=== PATIENT | male | born 1935 | race Caucasian/White ===

== ENCOUNTER 2018-02-17 10:33 | Outpatient (CLI) | payer MEDICARE, OTHER ==
[2018-02-17] MEDS ORDERED: Iopamidol 370 76% 100 ML VIAL ONE (11:01)
--- NOTE | 2018-02-17 13:34 | CT ---
CT ABDOMEN AND PELVIS WITH IV CONTRAST: INDICATIONS: Prostate cancer. Prior radiation. COMPARISON: Noncontrast CT abdomen and pelvis from 09/13/2011. TECHNIQUE: Multiple axial tomograms obtained through the abdomen and pelvis with IV enhancement. Oral contrast was not given. FINDINGS: Images through the lung bases reveal a 1 cm nodule in the anterior right lower lobe. Atelectatic stacy nges are seen in both posterior lung bases. Granulomatous calcifications are seen in the liver and spleen, which were present previously. Adrena l glands are unremarkable. The pancreas is unremarkable. There is an exophytic cyst off the superior right kidney, which was present previously, and measures 3.7 cm. It has enlarged slightly since the prior exam, at which time it measured 3 cm. The kidneys show symmetric function. No hydronephrosis. No evidence of urinary calculus. The urete rs are normal in appearance. The urinary bladder is mildly distended and appears unremarkable. Small bowel loops are of normal caliber. The colon shows diverticulosis. The aorta is of normal latrell iber. No adenopathy. An anterior abdominal wall hernia is again noted and was described previously. This appears unchange d. Mesenteric fat herniate through the defect with a hernia sac in the subcutaneous tissues measurin g up to 7 cm in width. Images of the osseous structures reveal a left hip prosthesis. The bones show osteopenia and degener ative changes in the spine. No focal lytic or blastic osseous lesion identified. An IVC filter is a gain noted. IMPRESSION: 1. A 1 cm nodule in the right lower lobe, anteriorly. Recommend dedicated CT chest to further evalu ate the lung mark. 2. Stable CT findings, which include an anterior abdominal wall hernia, a right renal cyst, and dive rticulosis. No acute findings or significant change from the prior CT. POS: [facility]
--- NOTE | 2018-02-17 16:17 | NM ---
WHOLE BODY BONE SCAN: Date: 02/17/18 HISTORY: Prostate cancer. RADIOPHARMACEUTICAL: 28 mCi technetium-99m MDP injected intravenously. COMPARISON: None. CORRELATION: CT abdomen and pelvis of same date. FINDINGS: Increased uptake in the lumbar spine is consistent with degenerative changes noted on the bone window s of the CT scan from same date. Increased uptake in the shoulders, sternoclavicular joints, right hi p, and both feet are consistent with degenerative change. Photopenia due to replacement surgery is se en in the left hip and the right knee. No other abnormal areas of tracer localization in the skeleton to suggest metastatic disease. Tracer excretion through the kidneys is within normal limits. IMPRESSION: No scintigraphic evidence of osseous metastatic disease. POS: [facility]
== END 2018-02-17 10:34 | disposition home or self-care (01) ==
LOC: CT 10:33
PROVIDERS: ATTEND Urology
DX: C61 Malignant neoplasm of prostate (principal); R91.1 Solitary pulmonary nodule; K43.9 Ventral hernia without obstruction or gangrene; N28.1 Cyst of kidney, acquired; K57.90 Diverticulosis of intestine, part unspecified, without perforation or abscess without bleeding
CPT/HCPCS: 74177; 78306; 82565; A9503

== ENCOUNTER 2018-11-27 10:28 | Day surgery (SDC) | payer MEDICARE, OTHER ==
[2018-11-26 17:10] VITALS: BMI 33.0
[2018-11-27] MEDS ORDERED: PROPOFOL 20 ML ONE (12:40)
[2018-11-27] MEDS ORDERED: PROPOFOL 200 MG/20 ML VIAL ONE (14:24)
--- NOTE | 2018-11-30 08:28 | OP ---
DATE OF PROCEDURE: 11/27/2018 PREOPERATIVE DIAGNOSIS: Atrial fibrillation. POSTOPERATIVE DIAGNOSIS: Atrial fibrillation. PROCEDURE: Failed cardioversion. The patient was consented for the procedure. I discussed the procedure in full detail with Mr. Galeas. Risks included, but not limited to , stroke, failed cardioversion, need for repeat cardioversion in addition burning of skin. All questions were answered. The patient states he has taken Coumadin fairly regularly over the last several years. His INR did drop down to 1.9 over the last 3 to 4 weeks and then overshot. It has otherwise been above 2.0 over the last several years per patient history. The patient underwent sedation with propofol. Synchronized cardioversion was unsuccessful at 150, 200, and 250 joules. IMPRESSION: Failed synchronized cardioversion. PLAN: Plan is to change to different type of antiarrhythmic such as flecainide or amiodarone. We will discuss on followup. Job ID: [id number]
== END 2018-11-27 14:10 | disposition home or self-care (01) ==
LOC: CCL 10:28
PROVIDERS: ATTEND Internal Medicine Cardiovascular Disease
DX: I48.0 Paroxysmal atrial fibrillation (principal); I27.20 Pulmonary hypertension, unspecified; L97.929 Non-pressure chronic ulcer of unspecified part of left lower leg with unspecified severity; I10 Essential (primary) hypertension; Z87.891 Personal history of nicotine dependence; Z79.01 Long term (current) use of anticoagulants; Z79.82 Long term (current) use of aspirin; Z79.84 Long term (current) use of oral hypoglycemic drugs; Z79.899 Other long term (current) drug therapy
CPT/HCPCS: 92960; J2704

== ENCOUNTER 2019-01-15 05:59 | Day surgery (SDC) | payer MEDICARE, OTHER ==
[2019-01-12 13:33] VITALS: BMI 34.4
[2019-01-15] MEDS ORDERED: Lidocaine 1% (PF) 30 ML VIAL ONE (06:53)
[2019-01-15] MEDS ORDERED: PROPOFOL 20 ML ONE (06:53)
[2019-01-15 07:56] LABS: Anion Gap 13 mmol/L (10-20); BUN (Urea Nitrogen) 26 mg/dL (8.4-25.7); Calc. Creatinine Clearance 75 mL/min (70-130); Carbon Dioxide 25 mmol/L (23-31); Chloride 108 mmol/L (98-107); Estimated GFR-MDRD 60; Glucose 113 mg/dL (83-110); Potassium 3.9 mmol/L (3.5-5.1); Sodium 142 mmol/L (136-145)
--- NOTE | 2019-01-15 08:17 | OP ---
DATE OF PROCEDURE: 01/15/2019 PREPROCEDURE DIAGNOSIS: Atrial fibrillation. POSTPROCEDURE DIAGNOSIS: Sinus rhythm. PROCEDURE PERFORMED: Synchronized cardioversion. Conscious sedation was performed with propofol. The patient underwent synchronized cardioversion x1 with 200 joules successfully. IMPRESSION: Successful synchronized cardioversion. Job ID: [id number]
--- NOTE | 2019-01-15 08:17 | OP ---
DATE OF PROCEDURE: 01/15/2019 PREPROCEDURE DIAGNOSIS: Atrial fibrillation. POSTPROCEDURE DIAGNOSIS: Atrial fibrillation. PROCEDURE PERFORMED: Transesophageal echocardiography. The patient was consented for the procedure. I discussed the procedure in full detail with Mr. Galeas. Risks included, but not limited to the following: Damage to teeth, mouth, back of throat, damage to esophagus. All questions were answered. Given the above, the patient agreed to proceed with above procedure. The probe was passed easily into the esophagus. Conscious sedation performed with propofol. FINDINGS: Left atrial appendage well visualized. No obvious thrombus present. Velocities approach 50 cm/second. IMPRESSION: No obvious thrombus of left atrial appendage. Job ID: [id number]
[2019-01-15] MEDS ORDERED: PROPOFOL 200 MG/20 ML VIAL ONE (15:41)
[2019-01-15] MEDS ORDERED: Lidocaine 1% PF 5 ML VIAL ONE (15:41)
== END 2019-01-15 08:32 | disposition home or self-care (01) ==
LOC: CCL 05:59
PROVIDERS: ATTEND Internal Medicine Cardiovascular Disease
PROC: 5A2204Z Restoration of Cardiac Rhythm, Single (ICD-10-PCS; principal; 2019-01-15)
PROC: B24BZZ4 Ultrasonography of Heart with Aorta, Transesophageal (ICD-10-PCS; 2019-01-15)
DX: I48.1 Persistent atrial fibrillation (principal); I10 Essential (primary) hypertension; E11.9 Type 2 diabetes mellitus without complications; I83.013 Varicose veins of right lower extremity with ulcer of ankle; Z86.73 Personal history of transient ischemic attack (TIA), and cerebral infarction without residual deficits; Z86.718 Personal history of other venous thrombosis and embolism; Z85.46 Personal history of malignant neoplasm of prostate; Z87.891 Personal history of nicotine dependence; Z79.01 Long term (current) use of anticoagulants; Z79.82 Long term (current) use of aspirin; Z79.84 Long term (current) use of oral hypoglycemic drugs; Z79.899 Other long term (current) drug therapy; Z98.890 Other specified postprocedural states
CPT/HCPCS: 80048; 92960; 93312; J2001; J2704

== ENCOUNTER 2019-01-25 11:01 | Inpatient (IN) | payer MEDICARE, OTHER ==
--- NOTE | 2019-01-25 11:27 | RAD ---
Chest one view HISTORY: Dyspnea. COMPARISON: 10/19/2018. FINDINGS: Cardiac silhouette is magnified by projection. Pulmonary vasculature upper limits of normal . Patchy parenchymal opacity at each base. Somewhat linear at the right base. Calcified granulomata and mediastinal lymph nodes are consistent with healed granulomatous disease. N o lobar consolidation or evidence of pneumothorax. Oval calcification immediately inferior to the right coracoid process likely represents an intracapsular right shoulder lesion. IMPRESSION: Mild bibasilar parenchymal opacity. Possible atelectasis versus infiltrate. Clinical arturo elation regarding other signs of symptoms of bibasilar pneumonitis is required. Other chronic-type findings are stable.
[2019-01-25 11:28] LABS: #Basophils 0.1 thou/uL (0.0-0.2); #Eosinphils 0.1 thou/uL (0.0-0.7); #Lymphocytes 0.6 thou/uL (1.20-3.40); #Monocytes 0.5 thou/uL (0.11-0.59); #Neutrophils 4.3 thou/uL (1.40-6.50); %Eosinophils 2.1 % (0.0-10.0); %Lymphocytes 11.1 % (21.0-51.0); %Monocytes 8.7 % (0.0-10.0); %Neutrophils 77.1 % (42.0-75.0); Hemoglobin 14.2 g/dL (14.0-18.0); Mean Corpuscular HGB CONC 31.7 g/dL (32.0-36.0); Mean Corpuscular Hemoglobin 28.2 pg (27.0-31.0); Mean Platelet Volume 8.6 fL (7.4-10.4); Platelet Count 152 thou/uL (130-400); RBC Distribution Width 15.2 % (11.5-14.5); Red Blood Cell (RBC) Count 5.02 mill/uL (4.70-6.10); White Blood Cell (WBC) Count 5.6 thou/uL (4.8-10.8)
[2019-01-25 11:51] LABS: ALT (SGPT) 22 U/L (8-55); AST (SGOT) 32 U/L (5-34); Alkaline Phosphatase 75 U/L (40-150); Anion Gap 17 mmol/L (10-20); BUN (Urea Nitrogen) 22 mg/dL (8.4-25.7); Bilirubin, Total 0.9 mg/dL (0.2-1.2); Calc. Creatinine Clearance 0 mL/min (70-130); Calcium 9.2 mg/dL (7.8-10.44); Carbon Dioxide 20 mmol/L (23-31); Chloride 106 mmol/L (98-107); Estimated GFR-MDRD 57; Globulin 3.7 g/dL (2.4-3.5); Glucose 147 mg/dL (83-110); Potassium 4.5 mmol/L (3.5-5.1); Protein, Total 7.7 g/dL (5.8-8.1); Sodium 138 mmol/L (136-145)
[2019-01-25] MEDS ORDERED: Furosemide 40 MG/4 ML VIAL ONE (13:41)
[2019-01-25] MEDS ORDERED: Ondansetron PF 4 MG/2 ML Vial IVP PRN (16:30)
[2019-01-25] MEDS ORDERED: HumaLOG 300 UNITS/3 ML VIAL SC PRN (16:43)
[2019-01-25] MEDS ORDERED: Dextrose 50% Abboject 50 ML SYRINGE SLOW IVP PRN (16:43)
[2019-01-25] MEDS ORDERED: Dextrose 5% in Water 1,000 ML IV PRN (16:43)
[2019-01-25] MEDS ORDERED: Furosemide 20 MG/2 ML VIAL SLOW IVP SCH (17:15)
[2019-01-25 17:27] LABS: INR-International Normal Ratio 2.5; Prothrombin Time 27.3 SEC (12.0-14.7)
--- NOTE | 2019-01-25 18:38 | HP ---
CHIEF COMPLAINT: Shortness of breath. HISTORY OF PRESENT ILLNESS: The patient is a very pleasant 83-year-old male with past medical history significant for atrial fibrillation, status post multiple cardioversions in the past, the most recent on January 15, 2019, with his primary shearing machine feeder, Dr. Chakraborty. Given this history, the patient reports worsening shortness of breath for the past 3 days. He does not complain of orthopnea, but rather dyspnea on exertion. Associated symptoms include approximately 10-pound weight gain over the past month. The patient reports no chest pains. He was seen this morning in the INR clinic, and because of his cough and shortness of breath, was sent to the shearing machine feeder's office for further evaluation. Ultimately, he was sent to the ER for further evaluation. Evaluation thus far has included a chest x-ray, which shows possible atelectasis versus infiltrate. The patient's BNP was over 2200. EKG showed sustained atrial fibrillation, with right bundle-branch block with a ventricular rate of 100 beats per minute. The patient states that he has undergone multiple cardioversions in the past. He was on antiarrhythmic therapy with sotalol for quite a while he says, and then was ultimately changed to flecainide per the patient at his last cardioversion. He has been compliant with his Coumadin. REVIEW OF SYSTEMS: A 12-point review of systems is performed and is negative except that stated above. The patient denies any fever or chills. He does report a productive cough as mentioned above, which is productive of clear and yellowish sputum. He denies any night sweats. He denies any abdominal pain, vomiting, or blood in his urine or stool. ALLERGIES: NO KNOWN DRUG ALLERGIES. HOME MEDICATIONS: 1. Aspirin 81 mg p.o. b.i.d. 2. Lipitor 20 mg p.o. q.p.m. 3. Celebrex 200 mg 1 tablet daily. 4. Aricept 10 mg 1 tablet daily. 5. Flecainide 50 mg tablet 1 tablet p.o. b.i.d. 6. Furosemide 40 mg tablet 1 tablet daily. 7. Glipizide 2.5 mg p.o. q.a.m. 8. Acidophilus 1 tablet daily. 9. Lisinopril 20 mg tablet 1 tablet p.o. b.i.d. 10. Metolazone 2.5 mg tablet 1 tablet daily. 11. Metoprolol tartrate 25 mg tablet 1 tablet p.o. b.i.d. 12. Daily multivitamin. 13. Potassium chloride 10 mEq tablet 1 tablet daily. 14. Warfarin 7.5 mg tablet 1 tablet daily. SOCIAL HISTORY: The patient has a remote history of smoking, but states that he quit many years ago. No alcohol. No illicit drug use. FAMILY HISTORY: Noncontributory. CODE STATUS: The patient is a full code, and this was discussed with the patient in detail. His son was present as well. PAST SURGICAL HISTORY: The patient has had numerous orthopedic procedures including several on his right elbow for reconstruction. He had a cyst removal from his chest. He has had a prostatectomy. He has had left hip replacement as well as right knee replacement, appendectomy, prostatectomy. PHYSICAL EXAMINATION: GENERAL: The patient is an elderly male, resting comfortably in bed, in no acute distress. HEENT: Head is atraumatic, normocephalic. Mucous membranes are moist. NECK: No appreciable JVD. No carotid bruits. Trachea is midline. CV: S1 and S2. Irregularly irregular, mildly tachycardic. LUNGS: Regular respiratory rate and pattern, bibasilar crackles, occasional expiratory wheeze. ABDOMEN: Positive bowel sounds. Soft, nontender. EXTREMITIES: Both lower extremities are wrapped. SKIN: No appreciable rashes or discolorations. NEUROLOGIC: Cranial nerves 2 through 12 are intact. The patient is nonfocal. He is alert and oriented x3. LABORATORY DATA: White blood cell count 5.6, RBC 5.02, hemoglobin 14.2, hematocrit 44.7, platelet count is 152. PT 27.3, INR 2.5. Sodium 138, potassium 4.5, chloride 106, carbon dioxide 20, anion gap 17, creatinine 1.22, glucose 120, lactic acid 1.7. AST, ALT, and alkaline phosphatase are all within normal limits. BNP 2021. Troponin 0.02. ASSESSMENT: 1. Shortness of breath secondary to acute congestive heart failure exacerbation in the setting of atrial fibrillation with rapid ventricular response, the patient may also have a mild bronchitis contributing as well, although BNP points to HF. 2. Atrial fibrillation with rapid ventricular response, status post failed cardioversion on January 15, 2019, CHADS-VASc equals 5, on anticoagulation with Coumadin, INR 2.5. 3. Hypertension. 4. Type-2 diabetes mellitus. 5. Mild dementia. 6. Chronic venous stasis dermatitis and chronic venous stasis ulcers for which the patient currently sees wound care on a regular basis. PLAN: We will continue IV diuresis as kidney function permits, and monitor electrolytes closely. Monitor Is and Os. We will continue beta cyndie for rate control and monitor his wheezing closely, although I suspect some aspect of cardiac asthma as well. Will see how he does with diuresis and re-assess. Continue PAUL inhibitor. I will hold flecainide in the setting of acute CHF exacerbation. We will consult Cardiology for further recommendations. He may be a candidate for ablation, given his failed medical therapy with multiple antiarrhythmics. We will defer to Cardiology for further recommendations. We will add sliding scale and Accu-Cheks. We will add GI prophylaxis, we will continue the patient's Coumadin for stroke and DVT prophylaxis. Further recommendations based on hospital course. Job ID: [id number] [email or web address]
[2019-01-25] MEDS: Famotidine 20 MG TAB PO SCH (20:57)
[2019-01-25] MEDS: Lisinopril 20 MG TAB PO SCH (20:57)
[2019-01-26 05:23] LABS: #Eosinphils 0.1 thou/uL (0.0-0.7); #Lymphocytes 0.9 thou/uL (1.20-3.40); #Monocytes 0.7 thou/uL (0.11-0.59); #Neutrophils 3.1 thou/uL (1.40-6.50); %Basophils 0.4 % (0.0-1.0); %Lymphocytes 18.2 % (21.0-51.0); %Monocytes 14.8 % (0.0-10.0); %Neutrophils 63.7 % (42.0-75.0); Hemoglobin 13.3 g/dL (14.0-18.0); Mean Corpuscular Hemoglobin 28.8 pg (27.0-31.0); Mean Platelet Volume 8.4 fL (7.4-10.4); Platelet Count 124 thou/uL (130-400); RBC Distribution Width 15.2 % (11.5-14.5); Red Blood Cell (RBC) Count 4.61 mill/uL (4.70-6.10); White Blood Cell (WBC) Count 4.9 thou/uL (4.8-10.8)
[2019-01-26 05:41] LABS: Anion Gap 12 mmol/L (10-20); BUN (Urea Nitrogen) 20 mg/dL (8.4-25.7); Calc. Creatinine Clearance 104 mL/min (70-130); Calcium 8.8 mg/dL (7.8-10.44); Carbon Dioxide 29 mmol/L (23-31); Chloride 104 mmol/L (98-107); Estimated GFR-MDRD Greater than 90; Glucose 79 mg/dL (83-110); Potassium 3.8 mmol/L (3.5-5.1); Sodium 141 mmol/L (136-145)
[2019-01-26] MEDS: Furosemide 40 MG/4 ML VIAL SLOW IVP SCH ×2 (06:21→13:31)
[2019-01-26] MEDS ORDERED: Warfarin Sodium 7.5 MG TAB PO SCH ×2 (09:00→17:00)
--- NOTE | 2019-01-26 09:34 | PDOC.PN ---
- Subjective Encounter Start Date: 01/26/19 Encounter Start Time: 09:30 Subjective: Patient reports SOB has improved -: Reports he is still wheezing - Objective Resuscitation Status - Order Detail: 01/25/19 16:30 Resuscitation Status Routine Co-Sign Provider: Resuscitation Status: FULL: Full Resuscitation Discussed with: patient Vital Signs & Weight: Vital Signs (12 hours) Temp Pulse Resp BP Pulse Ox 01/26/19 07:26 97.8 F 94 24 H 142/81 H 92 L 01/26/19 03:31 97.5 F L 93 24 H 135/74 95 01/25/19 23:30 97.8 F 90 12 150/82 H 95 Weight Weight 102.512 kg I&O: 01/25/19 01/26/19 01/27/19 06:59 06:59 06:59 Intake Total 280 Output Total 2425 Balance -2145 Result Diagrams: 01/26/19 04:43 01/26/19 04:43 Additional Labs: Accuchecks 01/25/19 01/25/19 20:44 16:53 POC Glucose 118 H 120 H Phys Exam - Physical Examination HEENT: PERRLA Neck: no nodes, no JVD Respiratory: wheezing present Cardiovascular: irregular Gastrointestinal: soft Musculoskeletal: edema present Neurological: normal sensation, moves all 4 limbs Psychiatric: normal affect, A&O x 3 Skin: cap refill <2 seconds Deviation from normal: megan type rash to groin Dx/Plan (1) Atrial fibrillation Code(s): I48.91 - UNSPECIFIED ATRIAL FIBRILLATION Status: Acute (2) CHF exacerbation Code(s): I50.9 - HEART FAILURE, UNSPECIFIED Status: Acute (3) Chronic kidney disease Code(s): N18.9 - CHRONIC KIDNEY DISEASE, UNSPECIFIED Status: Chronic (4) Wheezing Code(s): R06.2 - WHEEZING Status: Acute (5) CAD (coronary artery disease) Code(s): I25.10 - ATHSCL HEART DISEASE OF [place] CORONARY ARTERY W/O ANG PCTRS Status: Chronic - Plan cont current plan of care, respiratory therapy Lasix q6h, cardiology consult today -: Wound care for lower leg wounds -: Restart home meds, hold flecinide -: Patient is not sufficiently diuresed after 23 hours of observation -: and is still hypoxic with ambulation * . Review of Systems - Review of Systems Respiratory: Cough, Shortness of Breath, SOB with Excertion, Wheezing Skin: Lesions - Medications/Allergies Allergies/Adverse Reactions: Allergies Allergy/AdvReac Type Severity Reaction Status Date / Time No Known Drug Allergies Allergy Verified 01/12/19 13:30 Medications: Current Medications Acetaminophen (Tylenol) 650 mg PO Q4H PRN PRN Reason: Headache/Fever/Mild Pain (1-3) Albuterol/Ipratropium (Duoneb) 3 ml NEB [id number] PRN PRN Reason: SOB &/or Wheezing Last Admin: 01/26/19 10:21 Dose: 3 ml Dextrose/Water (Dextrose 50%) 25 gm SLOW IVP PRN PRN PRN Reason: Hypoglycemia Donepezil HCl (Aricept) 10 mg PO DAILY [facility] Last Admin: 01/26/19 10:20 Dose: 10 mg Famotidine (Pepcid) 20 mg PO BID [facility] Last Admin: 01/26/19 10:20 Dose: 20 mg Furosemide (Lasix) 40 mg SLOW IVP 0600,1400 [facility] Last Admin: 01/26/19 13:31 Dose: 40 mg Glucagon (Glucagon) 1 mg IM PRN PRN PRN Reason: Hypoglycemia Dextrose/Water (D5w) 1,000 mls @ 0 mls/hr IV .Q0M PRN PRN Reason: Hypoglycemia Insulin Human Lispro (Humalog) 0 units SC .MILD SLIDING SCALE PRN PRN Reason: Mild Correctional Scale Lisinopril (Zestril) 20 mg PO BID [facility] Last Admin: 01/26/19 10:20 Dose: 20 mg Metolazone (Zaroxolyn) 2.5 mg PO DAILY [facility] Last Admin: 01/26/19 10:25 Dose: 2.5 mg Metoprolol Succinate (Toprol Xl) 25 mg PO DAILY [facility] Last Admin: 01/26/19 10:20 Dose: 25 mg Nystatin (Mycostatin Powder) 0 gm TOP BID PRN PRN Reason: Topical Irritations Last Admin: 01/26/19 13:31 Dose: 1 applic Ondansetron HCl (Zofran) 4 mg IVP Q6H PRN PRN Reason: Nausea/Vomiting Warfarin Sodium (Coumadin) 7.5 mg PO 1700 [facility]
[2019-01-26] MEDS ORDERED: Nystatin Powder 15 GM BOT TOP PRN (09:52)
[2019-01-26] MEDS: Donepezil HCl 10 MG TAB PO SCH (10:20)
[2019-01-26] MEDS: Lisinopril 20 MG TAB PO SCH ×2 (10:20→21:03)
[2019-01-26] MEDS: Famotidine 20 MG TAB PO SCH ×2 (10:20→21:03)
[2019-01-26] MEDS: Metolazone 2.5 MG TAB PO SCH (10:25)
[2019-01-26] MEDS ORDERED: Warfarin Sodium 5 MG TAB PO SCH (17:30)
--- NOTE | 2019-01-26 17:50 | CON ---
DATE OF CONSULTATION: REASON FOR CONSULTATION: Atrial fibrillation and CHF. HISTORY OF PRESENT ILLNESS: Mr. Galeas is a very pleasant 83-year-old gentleman, whom I have seen him in the past. He has been cardioverted x2 in the last several weeks. He was cardioverted on sotalol in addition to switching to a flecainide. He has had increased swelling and lower extremity edema. He had a stress study performed that was within normal limits. He states he has gained 10 pounds. PAST MEDICAL HISTORY: Paroxysmal atrial fibrillation, prostate cancer, previous varicose veins, hypertension, previous DVT to right lower extremity, appendectomy, hip surgery, right arm surgery, back surgery, knee surgery, IVC filter placement likely occluded, prostatectomy. SOCIAL HISTORY: No current tobacco or alcohol use. REVIEW OF SYSTEMS: A 10-point review of systems is reviewed and as above, otherwise negative. CURRENT HOME MEDICATIONS: Include; 1. Lasix. 2. Donepezil. 3. Glipizide. 4. Atorvastatin. 5. Coumadin. 6. Celebrex. 7. Icaps. 8. Aspirin. 9. Flecainide. 10. Metoprolol. 11. Metolazone. 12. Klor-Con. PHYSICAL EXAMINATION: GENERAL: Patient is a pleasant male, who is in no acute distress. The patient appears their stated age. VITAL SIGNS: Blood pressure 144/60, pulse 82, temperature 98.6. NEUROLOGIC: The patient is alert and oriented x3 with no focal neurologic deficits. HEENT: Sclerae without icterus. Mouth has moist mucous membranes with normal pallor. NECK: No JVD. Carotid upstroke brisk. No bruits bilaterally. LUNGS: Crackles noted bilaterally. BACK: No scoliosis or kyphosis. CARDIAC: Regular rate and rhythm with normal S1 and S2. No S3 or S4 noted. No significant rubs, murmurs, thrills, or gallops noted throughout the precordium. PMI is not displaced. There is no parasternal heave. ABDOMEN: Soft, nontender, nondistended. No peritoneal signs present. No hepatosplenomegaly. No abnormal striae. EXTREMITIES: 2 to 3+ pitting edema. SKIN: No gross abnormalities. PERTINENT LABORATORY DATA: Hemoglobin 13.3, creatinine 0.8. IMPRESSION: 1. Acute on chronic diastolic heart failure. 2. Atrial fibrillation. 3. Previous deep venous thrombosis. 4. IVC filter placement, likely occluded. RECOMMENDATIONS: Mr. Galeas feels better after diuresis. He did weigh 242 in the office and now weighs 226. Continue to use Lasix and metolazone. We will discontinue flecainide. He may benefit from amiodarone therapy. Atrial fibrillation ablation may be difficult given likely IVC filter occlusion. We will consult with EP. Job ID: [id number]
[2019-01-27] MEDS: Furosemide 40 MG/4 ML VIAL SLOW IVP SCH ×2 (05:11→14:00)
--- NOTE | 2019-01-27 07:45 | PDOC.CTH ---
Cardiology Progress Note - Objective Vital Signs Temp Pulse Resp BP BP Pulse Ox 01/27/19 02:51 97.9 F 84 17 149/81 H 95 01/27/19 00:00 97.4 F L 81 17 165/88 H 97 01/26/19 22:20 97.7 F 99 18 176/90 H 95 01/26/19 21:03 135/75 Weight 221 lb 12.8 oz 01/26/19 01/27/19 01/28/19 06:59 06:59 06:59 Intake Total 280 1310 Output Total 2425 2950 Balance -5048 -4433 - Labs Result Diagrams: 01/26/19 04:43 01/26/19 04:43 Troponin/CKMB Troponin I 0.020 ng/mL (< 0.028) 01/25/19 11:13 - Assessment/Plan Afib Acute diastolic dysfunction DVT Occluded IVC Contiunue with diuretics change to po amiodarone On lasix, metoloazone Consut with EP; failed CV times two on sotalol and flecainide
--- NOTE | 2019-01-27 08:29 | PDOC.PN ---
- Subjective Encounter Start Date: 01/27/19 Encounter Start Time: 10:00 Subjective: Patient starting to feel a bit better. Still with some SOB/HULL. -: No other complaints. - Objective Resuscitation Status - Order Detail: 01/25/19 16:30 Resuscitation Status Routine Co-Sign Provider: Resuscitation Status: FULL: Full Resuscitation Discussed with: patient DOUGLAS Reviewed: Yes Vital Signs & Weight: Vital Signs (12 hours) Temp Pulse Resp BP BP Pulse Ox 01/27/19 07:41 99.7 F H 98 17 139/74 92 L 01/27/19 02:51 97.9 F 84 17 149/81 H 95 01/27/19 00:00 97.4 F L 81 17 165/88 H 97 01/26/19 22:20 97.7 F 99 18 176/90 H 95 01/26/19 21:03 135/75 Weight Weight 221 lb 12.8 oz I&O: 01/26/19 01/27/19 01/28/19 06:59 06:59 06:59 Intake Total 280 1310 Output Total 2425 2950 Balance -2145 -1640 Result Diagrams: 01/26/19 04:43 01/26/19 04:43 Additional Labs: Accuchecks 01/27/19 01/26/19 01/26/19 05:11 21:00 17:06 POC Glucose 85 98 92 01/26/19 10:48 POC Glucose 87 Phys Exam - Physical Examination Constitutional: NAD HEENT: moist MMs Respiratory: no wheezing, no rales, no rhonchi Cardiovascular: no significant murmur, irregular Gastrointestinal: soft, positive bowel sounds Musculoskeletal: edema present Neurological: non-focal, moves all 4 limbs Psychiatric: normal affect, A&O x 3 Dx/Plan (1) Acute on chronic diastolic (congestive) heart failure Code(s): I50.33 - ACUTE ON CHRONIC DIASTOLIC (CONGESTIVE) HEART FAILURE Status : Acute Comment: improved with diuresis (2) Paroxysmal atrial fibrillation Code(s): I48.0 - PAROXYSMAL ATRIAL FIBRILLATION Status: Acute Comment: failed sotolol and flecanide, EP consult and likely oral amiodarone, appreciate cardiology imput (3) CAD (coronary artery disease) Code(s): I25.10 - ATHSCL HEART DISEASE OF [place] CORONARY ARTERY W/O ANG PCTRS Status: Chronic (4) Hx of deep venous thrombosis Code(s): Z86.718 - PERSONAL HISTORY OF OTHER VENOUS THROMBOSIS AND EMBOLISM Status: Chronic Comment: with IVC filter, likely occluded - Plan cont current plan of care, out of bed/ambulate awaiting EP imput * . - Discharge Day Encounter end time: 10:10
[2019-01-27] MEDS: Famotidine 20 MG TAB PO SCH ×2 (09:52→21:13)
[2019-01-27] MEDS: Lisinopril 20 MG TAB PO SCH ×2 (09:53→21:14)
[2019-01-27] MEDS: Metolazone 2.5 MG TAB PO SCH (09:53)
[2019-01-27] MEDS: Donepezil HCl 10 MG TAB PO SCH (09:55)
[2019-01-27] MEDS ORDERED: Senokot 8.6 MG TAB PO PRN (10:41)
[2019-01-27] MEDS ORDERED: Docusate 100 MG CAP PO SCH (10:45)
[2019-01-27] MEDS ORDERED: Amiodarone 200 MG TAB PO SCH (11:15)
[2019-01-27 14:33] VITALS: BMI 30.9
--- NOTE | 2019-01-27 16:55 | CON ---
DATE OF CONSULTATION: 01/27/2019 REASON FOR CONSULTATION: Persistent atrial fibrillation. HISTORY OF PRESENT ILLNESS: Mr. Galeas is an 83-year-old gentleman with a history of persistent atrial fibrillation refractory to sotalol and flecainide despite recent cardioversions as well. Most recently, he was cardioverted on flecainide on 01/15/2019. He contacted his low raw sugar cutter for worsening shortness of breath over the 3 days leading up to admission, but ultimately weight gain for the past month. He was seen on the morning of his admission at [facility] because of the cough and shortness of breath and was ultimately sent to his low raw sugar cutter and then to the ER for further evaluation. He was found to be in acute diastolic heart failure with the BNP over 2000 and was also in atrial fibrillation with ventricular rate of approximately 100 beats per minute. His flecainide was held in lieu of his congestive heart failure, and he was admitted for heart failure management and additional monitoring. Mr. Galeas is currently resting comfortably in bed. His is at bedside. He is in no apparent distress. He reports that his breathing is easier. He is not aware of any heart racing or palpitations, chest pain, pressure, syncope, near syncope, stroke, or stroke-like symptoms. He does continue to have swelling in his extremities, and reports diabetic ulcers on both lower extremities as well. Other than that he is feeling well today and is without cardiac concern or complaint. REVIEW OF SYSTEMS: A 12-point review of systems is performed and negative, except that listed above in the HPI. PAST MEDICAL HISTORY: 1. Persistent atrial fibrillation refractory to sotalol and flecainide and cardioversion most recently on 01/15/2019. 2. Chronic anticoagulation on warfarin. 3. Diastolic heart failure. 4. 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 5. Diabetes. 6. Hypertension. 7. Prostate cancer. 8. Varicose veins. ALLERGIES: NO KNOWN DRUG ALLERGIES. HOME MEDICATIONS: 1. Aspirin 81 mg p.o. b.i.d. 2. Lipitor 20 mg q.p.m. 3. Celebrex 200 mg daily. 4. Aricept 10 mg daily. 5. Flecainide 50 mg p.o. b.i.d. (on hold since 01/25/2019). 6. Furosemide 40 mg one tablet daily. 7. Glipizide 2.5 mg q.a.m. 8. Acidophilus one tab daily. 9. Lisinopril 20 mg p.o. b.i.d. 10. Metolazone 2.5 mg p.o. daily. 11. Metoprolol tartrate 25 mg p.o. b.i.d. 12. Multivitamin daily. 13. Potassium chloride 10 mEq daily. 14. Warfarin as directed. SOCIAL HISTORY: Denies alcohol or illicit drug use. Remote history of smoking, but quit many years ago. FAMILY HISTORY: Noncontributory. Negative for sudden cardiac . PHYSICAL EXAMINATION: VITAL SIGNS: Temperature 99.7, pulse 98, blood pressure 135/75, respirations 17, oxygen 92% on 2 L via nasal cannula. GENERAL: The patient is alert, resting comfortably in bed, in no apparent distress. HEENT: Normocephalic and atraumatic. Oral mucosa is moist and pink with adequate dentition. NECK: Supple without jugular venous distention. Trachea is midline. HEART: Heart rate is irregularly irregular. Mildly tachycardic. PMI is slightly displaced. LUNGS: Exhibit bibasilar crackles. Respirations are even and nonlabored. Upper lobes are clear to auscultation. ABDOMEN: Soft and nontender with positive bowel sounds throughout. EXTREMITIES: Warm and dry to touch. Bilateral lower extremities are wrapped with reported diabetic ulcers. Underneath the wrappings, they exhibit 2+ pitting edema to the knee bilaterally. NEUROLOGIC: Grossly intact and nonfocal. The patient is alert and oriented. LABORATORY DATA: WBC 4.9, hemoglobin 13.3, platelet count 124. INR 2.5, potassium 3.8, creatinine 0.8. ALT and AST are within normal limits. Troponin is negative. BNP 2021 on admission. There is no TSH or free T4, recently checked. IMAGING STUDIES: EMILY was performed on 01/15/2019 to evaluate left atrial appendage before cardioverting, but no recent documentation of LVEF is found by hospital records. Telemetry and EKGs were all personally reviewed and show atrial fibrillation with variable ventricular response. Occasionally tachycardic, but under moderate rate control. No bradycardia. No pauses. No ventricular arrhythmias. IMPRESSION: 1. Persistent atrial fibrillation with [id number] rapid ventricular rate, failed prior cardioversion in spite of sotalol and flecainide therapy. 2. Chronic anticoagulation on warfarin for a CHADS-VASc score of 5. 3. Acute on chronic diastolic heart failure. 4. Possibly occluded inferior vena cava filter that was placed in the past for a right lower extremity deep vein thrombosis. RECOMMENDATIONS: We discussed atrial fibrillation with Mr. Galeas and his including treatment options including rate control alone, antiarrhythmic therapy, cardioversion and ablation. At this point, he is quite a poor ablation candidate given his advanced age, multiple comorbidities, and the fact that he does have a likely occluded IVC filter in place. My recommendation today is to continue oral anticoagulation with warfarin with a goal INR of 2 to 3 and we will begin amiodarone. We will obtain baseline thyroid function with laboratory testing today and start him on 400 mg p.o. b.i.d. Upon discharge, we recommend 200 mg p.o. t.i.d. x1 week, then 200 mg p.o. b.i.d. x2 weeks, and 200 mg p.o. daily thereafter. I could consider cardioversion as an outpatient in the future after amiodarone loading is completed, if he is not chemically converted since that time. If amiodarone fails, we could re-discuss ablative options versus rate control strategy alone. Thank you for allowing me to participate in the care of this patient. Job ID: [id number]
[2019-01-27] MEDS ORDERED: Warfarin Sodium 7.5 MG TAB PO SCH (17:00)
[2019-01-27] MEDS: Amiodarone 200 MG TAB PO SCH (21:13)
[2019-01-27] MEDS: Docusate 100 MG CAP PO SCH (21:13)
[2019-01-28 05:37] LABS: Anion Gap 12 mmol/L (10-20); BUN (Urea Nitrogen) 25 mg/dL (8.4-25.7); Calc. Creatinine Clearance 61 mL/min (70-130); Calcium 8.9 mg/dL (7.8-10.44); Carbon Dioxide 36 mmol/L (23-31); Chloride 95 mmol/L (98-107); Estimated GFR-MDRD 54; Glucose 83 mg/dL (83-110); Potassium 3.1 mmol/L (3.5-5.1); Sodium 140 mmol/L (136-145)
[2019-01-28] MEDS: Furosemide 40 MG/4 ML VIAL SLOW IVP SCH ×2 (05:40→14:02)
--- NOTE | 2019-01-28 08:27 | PDOC.PN ---
- Subjective Encounter Start Date: 01/28/19 Encounter Start Time: 10:50 Subjective: Patient still requiring O2. Doesn't use at home. SOB improved. No other -: complaints. - Objective Resuscitation Status - Order Detail: 01/25/19 16:30 Resuscitation Status Routine Co-Sign Provider: Resuscitation Status: FULL: Full Resuscitation Discussed with: daniel COLE Reviewed: Yes Vital Signs & Weight: Vital Signs (12 hours) Temp Pulse Resp BP BP Pulse Ox 01/28/19 04:46 97.9 F 89 18 146/69 H 92 L 01/27/19 22:41 93 18 94 L 01/27/19 21:14 147/71 H 01/27/19 21:00 98.7 F 99 16 147/71 H 93 L Weight Admit Weight 236 lb Weight 215 lb 8 oz I&O: 01/27/19 01/28/19 01/29/19 06:59 06:59 06:59 Intake Total 1310 50 Output Total 2950 550 Balance -1640 -500 Result Diagrams: 01/26/19 04:43 01/28/19 04:27 Additional Labs: Accuchecks 01/28/19 01/27/19 01/27/19 05:27 20:22 16:35 POC Glucose 103 114 H 158 H 01/27/19 10:40 POC Glucose 152 H Phys Exam - Physical Examination Constitutional: NAD HEENT: moist MMs Respiratory: no wheezing, no rales, no rhonchi Cardiovascular: no significant murmur, irregular Gastrointestinal: soft, positive bowel sounds Neurological: non-focal, moves all 4 limbs Psychiatric: normal affect, A&O x 3 Dx/Plan (1) Acute on chronic diastolic (congestive) heart failure Code(s): I50.33 - ACUTE ON CHRONIC DIASTOLIC (CONGESTIVE) HEART FAILURE Status : Acute Comment: improved with diuresis (2) Paroxysmal atrial fibrillation Code(s): I48.0 - PAROXYSMAL ATRIAL FIBRILLATION Status: Acute Comment: failed sotolol and flecanide, appreciate cardiology and EP imput, patient a poor candidate for ablation, plan is to treat with anticoagulation and amiodarone (3) CAD (coronary artery disease) Code(s): I25.10 - ATHSCL HEART DISEASE OF [place] CORONARY ARTERY W/O ANG PCTRS Status: Chronic (4) Hx of deep venous thrombosis Code(s): Z86.718 - PERSONAL HISTORY OF OTHER VENOUS THROMBOSIS AND EMBOLISM Status: Chronic Comment: with IVC filter, likely occluded - Plan cont current plan of care, out of bed/ambulate diuresed well -: will d/c home when ok with cardiology and EP, weaned off O2 * . - Discharge Day Encounter end time: 11:00
[2019-01-28] MEDS ORDERED: Potassium Chloride 20 MEQ TAB PO SCH (08:30)
[2019-01-28] MEDS ORDERED: ACIDOPHILUS PO SCH (09:00)
[2019-01-28] MEDS ORDERED: PECTIN CITRUS PO SCH (09:00)
[2019-01-28] MEDS ORDERED: Non-Formulary Item 1 EACH (Multivit-Min/Fa/Lutein/Zeaxant [Icaps Eye Vitamin Multivitamin PO SCH (09:00)
[2019-01-28 09:12] LABS: INR-International Normal Ratio 1.5; Prothrombin Time 18.2 SEC (12.0-14.7)
[2019-01-28] MEDS: Docusate 100 MG CAP PO SCH ×2 (09:28→19:54)
[2019-01-28] MEDS: Famotidine 20 MG TAB PO SCH ×2 (09:28→19:54)
[2019-01-28] MEDS: Amiodarone 200 MG TAB PO SCH ×2 (09:28→19:52)
[2019-01-28] MEDS: Aspirin Chewable 81 MG TAB PO SCH ×2 (09:28→19:54)
[2019-01-28] MEDS: Floranex Packet PO SCH (09:28)
[2019-01-28] MEDS: Donepezil HCl 10 MG TAB PO SCH (09:28)
[2019-01-28] MEDS: Lisinopril 20 MG TAB PO SCH ×2 (09:28→19:53)
[2019-01-28] MEDS: Acetaminophen 325 MG TAB PO PRN ×2 (09:29→17:10)
[2019-01-28] MEDS: Potassium Chloride 10 MEQ TAB PO SCH (09:29)
[2019-01-28] MEDS: Vit A,C & E/Lutein/Minerals Tablet PO SCH ×2 (09:29→19:53)
[2019-01-28] MEDS: Metolazone 2.5 MG TAB PO SCH (09:29)
--- NOTE | 2019-01-28 11:18 | PDOC.CTH ---
Cardiology Progress Note - Subjective EP PROGRESS NOTE: 01/28/19 Seen as follow up for atrial fibrillation. Started on amiodarone 01/27/19. Breathing is easier today. able to walk in vu with less SOB today - Objective Vital Signs Temp Pulse Resp BP BP Pulse Ox 01/28/19 09:28 130/59 L 01/28/19 08:20 100.2 F H 104 H 20 130/59 L 92 L 01/28/19 08:01 93 L 01/28/19 04:46 97.9 F 89 18 146/69 H 92 L Admit Weight 236 lb Weight 215 lb 8 oz 01/27/19 01/28/19 01/29/19 06:59 06:59 06:59 Intake Total 1310 50 300 Output Total 2950 550 Balance -1640 -500 300 - Physical Examination General/Neuro: alert & oriented x3, NAD Neck: carotid US brisk, no JVD present Lungs: other: (exp wheeze B/L, bibasilar crackles) Heart: PMI normal, other: (irreg irreg) Abdomen: NT/ND, soft - Telemetry Telemetry Rhythm: Atrial fibrillation - Labs Result Diagrams: 01/26/19 04:43 01/28/19 04:27 Troponin/CKMB Troponin I 0.020 ng/mL (< 0.028) 01/25/19 11:13 - Assessment/Plan 1. Atrial fibrillation, persistent - refractory to sotalol and flecainide. - started on amiodarone on 01/27/19. Continue 400mg PO BID x 7 days while hospitalized. Reduce dose to 200mg PO TID upon DC home - May continue amio loading at home once CHF stabilized. Recommend OP CV with cardiology after 2-3 weeks of amio loading. - Rate controlled. Amiodarone will reduce rates as loading continues. 2. CHADS2-VASC: >/= 5 - Continue warafarin for OAC. - INR within therapeutic range 3. A/C CHF - continues to diurese - better compensated today but persists with B/L crackles and exp wheezes. 4. Diabetes - diabetic ulcers to BLE Continue OAC with warfarin. Continue amiodarone loading. See consult or Discharge plan for taper dose recommendations. Request OP follow up in 6 weeks. CV can be done with cardiology as OP. OK for DC by EP.
--- NOTE | 2019-01-28 16:54 | PDOC.CTH ---
Cardiology Progress Note - Subjective Feels better. He would like to go home. - Objective Vital Signs Temp Pulse Resp BP BP Pulse Ox 01/28/19 12:51 97.9 F 91 20 123/62 90 L 01/28/19 09:28 130/59 L 01/28/19 08:20 100.2 F H 104 H 20 130/59 L 92 L 01/28/19 08:01 93 L Admit Weight 236 lb Weight 215 lb 8 oz 01/27/19 01/28/19 01/29/19 06:59 06:59 06:59 Intake Total 1310 50 600 Output Total 2950 550 Balance -1640 -500 600 - Physical Examination General/Neuro: alert & oriented x3, NAD Neck: no JVD present Lungs: unlabored respirations Heart: other: (iurr) Abdomen: NT/ND, soft Extremities: + femoral B - Telemetry Telemetry Rhythm: afib - Labs Result Diagrams: 01/26/19 04:43 01/28/19 04:27 Troponin/CKMB Troponin I 0.020 ng/mL (< 0.028) 01/25/19 11:13 - Assessment/Plan Afib Acute diastolic dysfunction DVT Occluded IVC Improving INR subtherapeutic again. Discussed eliquis instead of coumaidn. Pt is agreeable Continue amiodarone 400mg BID for 7 days then decrease to 400mg a day Daily weights at home Ok for discharge with close OP fu
[2019-01-28] MEDS ORDERED: Warfarin Sodium 5 MG TAB PO SCH (17:00)
[2019-01-28] MEDS: Apixaban 5 MG TAB PO SCH (19:53)
[2019-01-28] MEDS: Atorvastatin Calcium 20 MG TAB PO SCH (19:53)
[2019-01-28 21:55] LABS: Hemoglobin 14.1 g/dL (14.0-18.0); Platelet Count 154 thou/uL (130-400)
[2019-01-29 05:11] LABS: INR-International Normal Ratio 1.8; Prothrombin Time 21.1 SEC (12.0-14.7)
[2019-01-29] MEDS: Furosemide 40 MG/4 ML VIAL SLOW IVP SCH ×2 (05:12→13:48)
[2019-01-29 05:24] LABS: Anion Gap 15 mmol/L (10-20); BUN (Urea Nitrogen) 41 mg/dL (8.4-25.7); Calc. Creatinine Clearance 38 mL/min (70-130); Calcium 9.3 mg/dL (7.8-10.44); Carbon Dioxide 37 mmol/L (23-31); Chloride 92 mmol/L (98-107); Estimated GFR-MDRD 32; Glucose 96 mg/dL (83-110); Potassium 3.3 mmol/L (3.5-5.1); Sodium 141 mmol/L (136-145)
[2019-01-29] MEDS: Famotidine 20 MG TAB PO SCH ×2 (09:32→21:08)
[2019-01-29] MEDS: Floranex Packet PO SCH (09:32)
[2019-01-29] MEDS: Vit A,C & E/Lutein/Minerals Tablet PO SCH ×2 (09:33→21:11)
[2019-01-29] MEDS: Donepezil HCl 10 MG TAB PO SCH (09:33)
[2019-01-29] MEDS: Potassium Chloride 10 MEQ TAB PO SCH (09:33)
[2019-01-29] MEDS: Amiodarone 200 MG TAB PO SCH ×2 (09:33→21:09)
[2019-01-29] MEDS: Apixaban 5 MG TAB PO SCH ×2 (09:33→21:11)
[2019-01-29] MEDS: Docusate 100 MG CAP PO SCH ×2 (09:33→21:11)
[2019-01-29] MEDS: Metolazone 2.5 MG TAB PO SCH (09:34)
[2019-01-29] MEDS: Aspirin Chewable 81 MG TAB PO SCH ×2 (09:34→21:12)
[2019-01-29] MEDS: Lisinopril 20 MG TAB PO SCH ×2 (09:34→21:09)
[2019-01-29] MEDS ORDERED: Potassium Chloride 20 MEQ TAB PO SCH (16:00)
[2019-01-29] MEDS: Atorvastatin Calcium 20 MG TAB PO SCH (21:11)
--- NOTE | 2019-01-29 22:23 | PDOC.PN ---
- Subjective Encounter Start Date: 01/29/19 Encounter Start Time: 10:45 Subjective: pt up in bed no complains. pt gets tachycardiac on ambulation - Objective Resuscitation Status - Order Detail: 01/25/19 16:30 Resuscitation Status Routine Co-Sign Provider: Resuscitation Status: FULL: Full Resuscitation Discussed with: patient Vital Signs & Weight: Vital Signs (12 hours) Temp Pulse Resp BP BP Pulse Ox 01/29/19 21:09 127/66 01/29/19 18:40 109 H 138/66 01/29/19 13:39 97.9 F 99 18 136/65 96 Weight Admit Weight 236 lb Weight 214 lb 3.2 oz I&O: 01/28/19 01/29/19 01/30/19 06:59 06:59 06:59 Intake Total 50 950 990 Output Total 550 400 650 Balance -500 550 340 Result Diagrams: 01/28/19 21:48 01/29/19 04:07 Additional Labs: Accuchecks 01/29/19 01/29/19 01/29/19 20:02 17:02 10:43 POC Glucose 92 136 H 125 H 01/29/19 01/28/19 06:03 20:39 POC Glucose 121 H 148 H Phys Exam - Physical Examination Neck: no nodes, no JVD, supple, full ROM Respiratory: no wheezing, no rales, no rhonchi, wheezing present, clear to auscultation bilateral Cardiovascular: RRR, no significant murmur, no rub, gallop, irregular Gastrointestinal: soft, non-tender, no distention, positive bowel sounds Dx/Plan (1) Acute on chronic diastolic (congestive) heart failure Code(s): I50.33 - ACUTE ON CHRONIC DIASTOLIC (CONGESTIVE) HEART FAILURE Status : Acute Comment: improved with diuresis (2) Atrial fibrillation Code(s): I48.91 - UNSPECIFIED ATRIAL FIBRILLATION Status: Acute (3) CHF exacerbation Code(s): I50.9 - HEART FAILURE, UNSPECIFIED Status: Acute (4) CAD (coronary artery disease) Code(s): I25.10 - ATHSCL HEART DISEASE OF [place] CORONARY ARTERY W/O ANG PCTRS Status: Chronic (5) Hx of deep venous thrombosis Code(s): Z86.718 - PERSONAL HISTORY OF OTHER VENOUS THROMBOSIS AND EMBOLISM Status: Chronic Comment: with IVC filter, likely occluded - Plan will call EP if ok to increase bb due to elevated hr on -: ambulation. pt otherwise feels well. Creatinine improving -: if stable possible discharge in am * . Review of Systems - Review of Systems Respiratory: negative: Cough, Dry, Shortness of Breath, Hemoptysis, SOB with Excertion, Pleuritic Pain, Sputum, Wheezing Cardiovascular: negative: chest pain, palpitations, orthopnea, paroxysmal nocturnal dyspnea, edema, light headedness, other Gastrointestinal: negative: Nausea, Vomiting, Abdominal Pain, Diarrhea, Constipation, Melena, Hematochezia, Other - Medications/Allergies Allergies/Adverse Reactions: Allergies Allergy/AdvReac Type Severity Reaction Status Date / Time No Known Drug Allergies Allergy Verified 01/12/19 13:30 Medications: Current Medications Acetaminophen (Tylenol) 650 mg PO Q4H PRN PRN Reason: Headache/Fever/Mild Pain (1-3) Last Admin: 01/28/19 17:10 Dose: 650 mg Acidophilus (Floranex) 1 gm PO DAILY [facility] Last Admin: 01/29/19 09:32 Dose: 1 gm Albuterol/Ipratropium (Duoneb) 3 ml NEB [id number] PRN PRN Reason: SOB &/or Wheezing Last Admin: 01/27/19 22:41 Dose: 3 ml Amiodarone HCl (Cordarone) 400 mg PO BID [facility] Last Admin: 01/29/19 21:09 Dose: 400 mg Apixaban (Eliquis) 5 mg PO BID [facility] Last Admin: 01/29/19 21:11 Dose: 5 mg Aspirin (Aspirin Chewable) 81 mg PO BID [facility] Last Admin: 01/29/19 21:12 Dose: 81 mg Atorvastatin Calcium (Lipitor) 20 mg PO QPM [facility] Last Admin: 01/29/19 21:11 Dose: 20 mg Dextrose/Water (Dextrose 50%) 25 gm SLOW IVP PRN PRN PRN Reason: Hypoglycemia Docusate Sodium (Colace) 100 mg PO BID [facility] Last Admin: 01/29/19 21:11 Dose: Not Given Donepezil HCl (Aricept) 10 mg PO DAILY [facility] Last Admin: 01/29/19 09:33 Dose: 10 mg Famotidine (Pepcid) 20 mg PO BID [facility] Last Admin: 01/29/19 21:08 Dose: 20 mg Furosemide (Lasix) 40 mg SLOW IVP 0600,1400 [facility] Last Admin: 01/29/19 13:48 Dose: 40 mg Glucagon (Glucagon) 1 mg IM PRN PRN PRN Reason: Hypoglycemia Dextrose/Water (D5w) 1,000 mls @ 0 mls/hr IV .Q0M PRN PRN Reason: Hypoglycemia Insulin Human Lispro (Humalog) 0 units SC .MILD SLIDING SCALE PRN PRN Reason: Mild Correctional Scale Lisinopril (Zestril) 20 mg PO BID [facility] Last Admin: 01/29/19 21:09 Dose: 20 mg Metolazone (Zaroxolyn) 2.5 mg PO DAILY [facility] Last Admin: 01/29/19 09:34 Dose: 2.5 mg Metoprolol Succinate (Toprol Xl) 50 mg PO DAILY [facility] Multivitamins/Minerals (Ocuvite With Lutein) 1 tab PO BID [facility] Last Admin: 01/29/19 21:11 Dose: 1 tab Nystatin (Mycostatin Powder) 0 gm TOP BID PRN PRN Reason: Topical Irritations Last Admin: 01/26/19 13:31 Dose: 1 applic Ondansetron HCl (Zofran) 4 mg IVP Q6H PRN PRN Reason: Nausea/Vomiting Potassium Chloride (Klor-Con 10) 10 meq PO DAILY [facility] Last Admin: 01/29/19 09:33 Dose: 10 meq Senna (Senokot) 2 tab PO HSPRN PRN PRN Reason: Constipation Last Admin: 01/28/19 17:10 Dose: 2 tab Sodium Chloride (Flush - Normal Saline) 10 ml IVF Q12HR [facility] Last Admin: 01/29/19 21:11 Dose: 10 ml Sodium Chloride (Flush - Normal Saline) 10 ml IVF PRN PRN PRN Reason: Saline Flush
[2019-01-30] MEDS ORDERED: Furosemide 40 MG TAB PO SCH (06:00)
[2019-01-30] MEDS: Furosemide 40 MG/4 ML VIAL SLOW IVP SCH ×2 (06:06→13:58)
[2019-01-30 07:22] LABS: INR-International Normal Ratio 1.8; Prothrombin Time 21.2 SEC (12.0-14.7)
[2019-01-30] MEDS: Donepezil HCl 10 MG TAB PO SCH (09:09)
[2019-01-30] MEDS: Aspirin Chewable 81 MG TAB PO SCH (09:09)
[2019-01-30] MEDS: Docusate 100 MG CAP PO SCH (09:09)
[2019-01-30] MEDS: Apixaban 5 MG TAB PO SCH (09:09)
[2019-01-30] MEDS: Amiodarone 200 MG TAB PO SCH (09:09)
[2019-01-30] MEDS: Floranex Packet PO SCH (09:09)
[2019-01-30] MEDS: Metolazone 2.5 MG TAB PO SCH (09:10)
[2019-01-30] MEDS: Famotidine 20 MG TAB PO SCH (09:10)
[2019-01-30] MEDS: Lisinopril 20 MG TAB PO SCH (09:10)
[2019-01-30] MEDS: Vit A,C & E/Lutein/Minerals Tablet PO SCH (09:11)
[2019-01-30] MEDS: Potassium Chloride 10 MEQ TAB PO SCH (09:25)
[2019-01-30 10:23] LABS: Anion Gap 14 mmol/L (10-20); BUN (Urea Nitrogen) 45 mg/dL (8.4-25.7); Calc. Creatinine Clearance 42 mL/min (70-130); Calcium 10.1 mg/dL (7.8-10.44); Carbon Dioxide 37 mmol/L (23-31); Chloride 93 mmol/L (98-107); Estimated GFR-MDRD 37; Glucose 148 mg/dL (83-110); Potassium 4.1 mmol/L (3.5-5.1); Sodium 140 mmol/L (136-145)
[2019-01-30 12:01] VITALS: BP 137/63; TEMP 98
--- NOTE | 2019-02-01 12:30 | DIS ---
DATE OF ADMISSION: 01/26/2019 DATE OF DISCHARGE: 01/30/2019 DISCHARGE DIAGNOSES: 1. [id number] diastolic heart failure. 2. Atrial fibrillation. 3. Coronary artery disease. 4. History of deep venous thrombosis. The patient has an old filter. HOSPITAL COURSE: The patient is a very pleasant 83-year-old male. Please refer to the H and P for details, who initially presented to the hospital with worsening shortness of breath. The patient has a history of atrial fibrillation and he has had multiple cardioversions in the past by Cardiology. Last one was in January 15, 2019. The patient stated that for the past 3 days, he has been noticing worsening shortness of breath and dyspnea on exertion. The patient at this time was seen by Cardiology who was also seen by Electrophysiology. The patient was initially on flecainide and this was changed to amiodarone. The patient continued to improve without any events in the hospital. The patient was on Coumadin, which was changed to Eliquis. The patient also has chronic lower extremity wounds, which his states that she has been dressing it. Recommended the patient to start on amiodarone and patient to follow up as an outpatient with electrophysiology in about 6 weeks. While patient was in the hospital, I did ambulate the patient and just at rest patient's oxygen saturations were on 84. The patient does have a history of smoking. The patient also had some expiratory wheezing on the day of discharge. At this time, I started the patient on Medrol Dosepak. I did address with the patient's the need for possible pulmonary function test once he is more stable. The day prior to his discharge, patient was noted to have mild tachycardia on ambulation at this time. Electrophysiology recommended to increase the beta cyndie to 50 mg. The patient currently is resting comfortably without any issues. The patient was noted to have a rash around where the tapes were applied to both of his arms and also he had some rash underneath the breast area. The rash on the arms appeared to be more of like an allergic reaction to the tape and the rash on the breast area was macular, papular and also appeared to be a local irritant. I did inform the family that since he has been starting new medications, if the rash worsens, he needs to come back into the ER. HOME MEDICATIONS: As of the following, the new prescriptions are: 1. Amiodarone, he has a taper of 200 mg t.i.d. for 1 week, then 200 mg b.i.d. for 2 weeks and then 200 mg daily. 2. Eliquis 5 mg b.i.d. 3. Pepcid 20 mg b.i.d. 4. Toprol 50 mg daily. 5. Nystatin powder underneath the breast area. 6. Medrol Dosepak. 7. Potassium 10 mEq daily. 8. Glipizide 2.5 daily. 9. Aspirin 81 mg daily. 10. Atorvastatin 40 mg q. p.m. 11. Donepezil 10 mg daily. 12. Lasix 40 mg daily. 13. He is on a probiotic. 14. Zestril 20 mg daily. 15. Metolazone 2.5 mg daily. PHYSICAL EXAMINATION: VITAL SIGNS: Temperature 98.0, 76, 93, 2L on nasal cannula, blood pressure 137/53. GENERAL: He is awake, alert, and oriented x3. Does not appear in distress. CV: S1, S2 present. No murmurs, rubs, or gallops. ABDOMEN: Soft and nontender. Bowel sounds are present x2. SKIN: He does have a rash underneath the breast area, which appears to be a little moist. Also, has little erythema noted to bilateral upper and bilateral arm. Lower extremity wrapped per . The patient has been ambulating. The patient again will follow up with his PCP next week and also will follow up with Cardiology and Electrophysiology. He also follows up with [facility]. The patient will be discharged home with oxygen, which most likely will be weaned off. Again, I also have started patient on a Medrol Dosepak to aid in his breathing, especially with mild wheezing. The patient states that he does have a rescue inhaler at home and was not very fond of the breathing treatments. Job ID: [id number]
== END 2019-01-30 15:12 | disposition home or self-care (01) | DRG 291 ==
LOC: ERS 11:01 → 2SW 12:20 → OBSVTOIN 01-26 15:37 → 2NO 01-26 22:21
PROVIDERS: ADMIT Family Medicine; ATTEND Family Medicine
DX: I13.0 Hypertensive heart and chronic kidney disease with heart failure and stage 1 through stage 4 chronic kidney disease, or unspecified chronic kidney disease (principal); I50.33 Acute on chronic diastolic (congestive) heart failure; T82.598A Other mechanical complication of other cardiac and vascular devices and implants, initial encounter; I48.1 Persistent atrial fibrillation; L97.929 Non-pressure chronic ulcer of unspecified part of left lower leg with unspecified severity; L97.919 Non-pressure chronic ulcer of unspecified part of right lower leg with unspecified severity; F03.90 Unspecified dementia, unspecified severity, without behavioral disturbance, psychotic disturbance, mood disturbance, and anxiety; N18.9 Chronic kidney disease, unspecified; I87.8 Other specified disorders of veins; I25.10 Atherosclerotic heart disease of native coronary artery without angina pectoris; E11.622 Type 2 diabetes mellitus with other skin ulcer; Z79.82 Long term (current) use of aspirin; Z79.01 Long term (current) use of anticoagulants; Z90.49 Acquired absence of other specified parts of digestive tract; Z86.718 Personal history of other venous thrombosis and embolism; Z85.46 Personal history of malignant neoplasm of prostate
CPT/HCPCS: 36415; 36416; 71045; 80048; 80053; 83605; 83880; 84439; 84443; 84484; 85014; 85018; 85025; 85049; 85610; 85730; 93005; 93798; 94640; 96374; 99211; G0463; J1940; J7620

== ENCOUNTER 2020-02-23 20:30 | Inpatient (IN) | payer MEDICARE, OTHER ==
[2020-02-23] MEDS ORDERED: Ondansetron PF 4 MG/2 ML Vial ONE (21:05)
[2020-02-23] MEDS ORDERED: Morphine 4 MG/ML VIAL ONE (21:06)
[2020-02-23 21:11] LABS: #Eosinphils 0.1 thou/uL (0.0-0.7); #Lymphocytes 0.8 thou/uL (1.20-3.40); #Monocytes 0.9 thou/uL (0.11-0.59); %Basophils 0.2 % (0.0-1.0); %Eosinophils 0.8 % (0.0-10.0); %Lymphocytes 6.1 % (21.0-51.0); %Neutrophils 85.8 % (42.0-75.0); Hemoglobin 15.6 g/dL (14.0-18.0); Mean Corpuscular HGB CONC 33.7 g/dL (32.0-36.0); Mean Corpuscular Hemoglobin 32.2 pg (27.0-31.0); Mean Corpuscular Volume 95.6 fL (78.0-98.0); Platelet Count 174 thou/uL (130-400); RBC Distribution Width 12.3 % (11.5-14.5); Red Blood Cell (RBC) Count 4.85 mill/uL (4.70-6.10); White Blood Cell (WBC) Count 12.8 thou/uL (4.8-10.8)
[2020-02-23 21:34] LABS: ALT (SGPT) 21 U/L (8-55); AST (SGOT) 22 U/L (5-34); Albumin 4.3 g/dL (3.4-4.8); Alkaline Phosphatase 117 U/L (40-110); Anion Gap 18 mmol/L (10-20); BUN (Urea Nitrogen) 42 mg/dL (8.4-25.7); Bilirubin, Total 0.7 mg/dL (0.2-1.2); Calc. Creatinine Clearance 0 mL/min (70-130); Calcium 9.6 mg/dL (7.8-10.44); Carbon Dioxide 23 mmol/L (23-31); Chloride 104 mmol/L (98-107); Estimated GFR-MDRD 25; Globulin 3.7 g/dL (2.4-3.5); Glucose 224 mg/dL (83-110); Lipase 45 U/L (8-78); Potassium 4.3 mmol/L (3.5-5.1); Sodium 141 mmol/L (136-145)
--- NOTE | 2020-02-23 22:17 | CT ---
CT ABDOMEN AND PELVIS WITH CONTRAST: Date: 02/23/2020 HISTORY: Abdominal pain. COMPARISON: CT abdomen and pelvis dated 02/17/2018. FINDINGS: There is a nodule in the right middle lobe measuring 9.0 mm. There is also a lower right middle lobe nodule measuring 9.0 mm, which is similar to the 2018 study. There is bronchiectasis with scarring of both lower lobes. No significant pericardial fluid. There is a small bowel containing left periumbilical hernia through the rectus sheath containing small bowel with fluid inflammation within the hernia sac. The small armaan wel proximal to this is dilated to 3.5 cm. Multiple calcified granulomas of the spleen and liver. There is an IVC filter in place. Mild vascular calcifications. Large cyst in right kidney. No hydronephrosis. Pancreas is unremarkable. Extensive diverticular disease sigmoid colon without active current inflamm ation. IMPRESSION: Left paracentral ventral hernia containing omentum and small bowel causing obstruction. There is flui d in the hernia sac and inflammation of the mesentery and omentum. Surgical consultation is advised. POS: HOME
[2020-02-23 22:56] LABS: Bilirubin Negative (Negative); Blood, Urine Negative (Negative); Clarity Clear (Clear); Glucose, Urine (Dipstick) Normal (Negative); Leukocyte Negative Leu/uL (Negative); Nitrite Negative (Negative); Protein, Urine (Dipstick) Negative (Neg-Trace); Urobilinogen Normal mg/dL (Less than 2)
[2020-02-24] MEDS ORDERED: hydrALAZINE 20 MG/ML VIAL SLOW IVP PRN (01:16)
[2020-02-24] MEDS ORDERED: Morphine 2 MG/ML SYRINGE SLOW IVP PRN (01:16)
[2020-02-24] MEDS ORDERED: Dextrose 5% in Water 1,000 ML IV PRN (01:16)
[2020-02-24] MEDS ORDERED: HumaLOG 300 UNITS/3 ML VIAL SC PRN (01:16)
[2020-02-24] MEDS ORDERED: Ondansetron PF 4 MG/2 ML Vial IVP PRN (01:16)
[2020-02-24] MEDS ORDERED: Morphine 4 MG/ML VIAL SLOW IVP PRN (01:16)
[2020-02-24] MEDS ORDERED: Promethazine HCl 25 MG/ML VIAL IM PRN ×2 (01:16→14:32)
[2020-02-24] MEDS ORDERED: Dextrose 50% Abboject 50 ML SYRINGE SLOW IVP PRN (01:16)
[2020-02-24 01:20] VITALS: BMI 25.7
[2020-02-24] MEDS: Sodium Chloride 0.9% 1,000 ML IV SCH ×2 (01:25→13:13)
[2020-02-24 06:29] LABS: Anion Gap 15 mmol/L (10-20); BUN (Urea Nitrogen) 42 mg/dL (8.4-25.7); Calc. Creatinine Clearance 30 mL/min (70-130); Calcium 8.7 mg/dL (7.8-10.44); Carbon Dioxide 26 mmol/L (23-31); Chloride 109 mmol/L (98-107); Estimated GFR-MDRD 30; Glucose 111 mg/dL (83-110); Potassium 4.6 mmol/L (3.5-5.1); Sodium 145 mmol/L (136-145)
--- NOTE | 2020-02-24 06:47 | HP ---
CHIEF COMPLAINT: Abdominal pain. HISTORY OF PRESENT ILLNESS: This is an 84-year-old male with a history of robotic prostatectomy, who presents with a history of chronic bulge in the area of previous surgery, became more severe pain this evening, associated with nausea and vomiting. Seen in the Emergency Department, where a CT shows evidence of incarcerated and strangulated incisional hernia. This hernia is able to be reduced at the bedside. He notes pain in the area, but it is controlled now. No ongoing nausea or vomiting. PAST MEDICAL HISTORY: Includes coronary artery disease, chronic atrial fibrillation, venous stasis disease, prostate cancer, dyslipidemia, and diabetes mellitus diet controlled. SOCIAL HISTORY: Remote smoker, quit many years ago. No alcohol. MEDICATIONS: Taken daily include; 1. Furosemide 40 a day. 2. Amiodarone 200 a day. 3. Metoprolol 50 mg once a day. 4. Simvastatin. 5. Eliquis. ALLERGIES: NO KNOWN DRUG ALLERGIES. REVIEW OF SYSTEMS: Ten-system review of systems is otherwise negative as described above. PHYSICAL EXAMINATION: HEENT: Sclerae are anicteric. Oropharynx clear. NECK: No lymphadenopathy. CHEST: Clear. HEART: Regular rate. ABDOMEN: Soft. Hernia was reduced. He is sore in the area now, but no guarding or rebound. No abdominal hernias otherwise. EXTREMITIES: No ischemia or edema to extremities. LABORATORY DATA: White blood cell count 12 and hemoglobin 15. Creatinine 2.48. ASSESSMENT: 1. Incarcerated ventral hernia able to be reduced, but needs to be repaired within the next few days. 2. Chronic atrial fibrillation. 3. Coronary artery disease. 4. Chronic renal insufficiency. 5. Dyslipidemia. 6. History of prostate cancer. 7. Diabetes mellitus. PLAN: Admit to the hospital [facility]. Hold his Eliquis. Semi-elective hernia repair tomorrow. Risks, benefits, and alternatives discussed. He gives consent. We will do this tomorrow. Job ID: [id number]
--- NOTE | 2020-02-24 07:36 | RAD ---
CHEST 1 VIEW: HISTORY: Preop evaluation. COMPARISON: Radiograph of 01/25/2019. FINDINGS: There are pulmonary nodules in the right mid lung. Small bronchiectasis and scar in both lower lobes . The pulmonary arteries are dilated. IMPRESSION: 1. Pulmonary nodules for which nonemergent followup CT of the chest is recommended. 2. Atelectatic changes of the lung bases with scar. 3. Calcified granulomas of the hilum. 4. Pulmonary hypertension. POS: HOME
[2020-02-24] MEDS: Amiodarone 200 MG TAB PO SCH (08:08)
[2020-02-24] MEDS: Famotidine 20 MG TAB PO SCH (08:08)
[2020-02-24] MEDS: Famotidine/PF 20 mg/2ml Vial SLOW IVP SCH (08:13)
--- NOTE | 2020-02-24 12:00 | PDOC.FMACP ---
Advance Care Planning - Problem (1) Acute on chronic diastolic (congestive) heart failure Status: Acute Code(s): I50.33 - ACUTE ON CHRONIC DIASTOLIC (CONGESTIVE) HEART FAILURE (2) Atrial fibrillation Status: Acute Code(s): I48.91 - UNSPECIFIED ATRIAL FIBRILLATION (3) CAD (coronary artery disease) Status: Chronic Code(s): I25.10 - ATHSCL HEART DISEASE OF [place] CORONARY ARTERY W/O ANG PCTRS (4) Chronic kidney disease Status: Chronic Code(s): N18.9 - CHRONIC KIDNEY DISEASE, UNSPECIFIED - Note Participants: patient, family, palliative care Summary: Advanced Care Planning was discussed. The diagnosis, prognosis and goals of care were discussed. Appropriate forms and documentation to accomplish the goals of care were discussed. All questions were answered. The Palliative Care Team will be engaged to assist with completion of any outstanding forms that are needed. Patient and his were allowed the opportunity to decline Advance Directives or review. Kassandra Gill Palliative Care registrar confirmed that patient current MPOA documentation remains current as well as Directive to Physicians. at bedside and confirms information as well. At this time remain with full resuscitation measures. Time Spent (mins): 30
[2020-02-24] MEDS ORDERED: EPHEDRINE 25 MG/5 ML SYRINGE ONE (12:40)
[2020-02-24] MEDS ORDERED: Lidocaine 1% PF 5 ML VIAL ONE (12:40)
[2020-02-24] MEDS ORDERED: Ondansetron PF 4 MG/2 ML Vial ONE (12:40)
[2020-02-24] MEDS ORDERED: Rocuronium Bromide 10 MG/ML (10ML VIAL) ONE (12:40)
[2020-02-24] MEDS ORDERED: PROPOFOL 200 MG/20 ML VIAL ONE (12:40)
[2020-02-24] MEDS ORDERED: Midazolam HCl 2 mg/2 ml Vial ONE (13:00)
[2020-02-24] MEDS ORDERED: Fentanyl 100 MCG/2 ML VIAL ONE ×2 (13:00→14:35)
[2020-02-24] MEDS ORDERED: Lidocaine 1% w/Epinephrine 1:100K 20 ML VIAL ONE (13:03)
[2020-02-24] MEDS ORDERED: Bupivacaine 0.25% HCL 30 ML VIAL ONE (13:03)
[2020-02-24] MEDS ORDERED: Propofol 500 MG/50 ML VIAL ONE (13:24)
[2020-02-24] MEDS ORDERED: Phenylephrine 10 MG/ML VIAL ONE (13:24)
[2020-02-24] MEDS ORDERED: Promethazine HCl 25 MG/ML VIAL SLOW IVP PRN (14:32)
[2020-02-24] MEDS ORDERED: Meperidine HCl/PF 25 MG/ML VIAL SLOW IVP PRN (14:32)
[2020-02-24] MEDS ORDERED: traMADol HCl 50 MG TAB PO PRN ×2 (14:39)
[2020-02-24] MEDS ORDERED: HYDROcodone/Acetaminophen 7.5/325 mg Tablet PO PRN (14:39)
[2020-02-24] MEDS ORDERED: Acetaminophen 325 MG TAB PO PRN (14:39)
--- NOTE | 2020-02-25 07:19 | OP ---
DATE OF PROCEDURE: 02/24/2020 PREOPERATIVE DIAGNOSIS: Incarcerated, history of strangulated incisional hernia. POSTOPERATIVE DIAGNOSIS: Incarcerated, history of strangulated incisional hernia. PROCEDURE PERFORMED: Incarcerated incisional hernia repair with mesh, Ventralex ST, large. ANESTHESIA: General. ESTIMATED BLOOD LOSS: Minimal. COMPLICATIONS: None. SPECIMEN: None. FINDINGS: 3-cm defect in area of previous surgery, laparoscopic trocar site from robotic prostatectomy. DESCRIPTION OF PROCEDURE: The patient was taken to the operating room and placed supine on the operating table. After general anesthetic was obtained, the abdomen was shaved, prepped and draped in a sterile fashion. A transverse incision was made over the hernia just above and to the left of the umbilicus. Cautery was used to dissect down to the hernia sac. The hernia sac was dissected back to the fascia. The abdominal cavity was entered and the hernia sac was debrided from the edges of the fascia anterior fascia was exposed. The larger of the Ventralex ST mesh was brought into the sterile field. The underlay was placed in the abdominal cavity. The tails were laid out lateral. The tails were sewn via U-stitch of permanent braided suture to the edges of the fascia superiorly and inferiorly. The fascia was able to be closed loosely over the mesh using a PDS. The wound was irrigated. Local anesthetic was applied, and the wound was closed using 3-0 Vicryl, 4-0 Monocryl and Dermabond. The patient was en route to Recovery in stable condition. All instrument counts, needle counts, and lap counts were correct. Job ID: [id number]
--- NOTE | 2020-02-25 07:59 | PDOC.GSPN ---
Surgery Progress Note: Subj - Subjective Narrative: Pain well controlled. He was NOT walked last night for some reason. No nausea , vomitting. No dyspnea Surgery Progress Note: Obj - Vital signs Vital signs: Vital Signs - Most Recent Temp Pulse Resp BP Pulse Ox 98.2 F 66 16 143/68 H 94 L 02/25/20 07:43 02/25/20 07:43 02/25/20 07:43 02/25/20 07:43 02/25/20 07:43 - Physical Exam General: no distress Cardiovascular: regular rate and rhythm Respiratory: clear to auscultation Abdomen: soft, appropriately tender Wound: healing well Surgery Progress Note: Results - Labs Result Diagrams: 02/23/20 20:51 02/24/20 05:34 Lab results: Laboratory Results - last 24 hr 02/24/20 02/25/20 20:30 05:35 POC Glucose 132 H 89 Surgery Progress Note: A/P - Problem (1) Incarcerated incisional hernia Current Visit: Yes Code(s): K43.0 - INCISIONAL HERNIA WITH OBSTRUCTION, WITHOUT GANGRENE Status: Acute - Plan Plan: POD 1 -He may need to stay today if unsteady when walking -Resume home meds -Resume German santana
[2020-02-25] MEDS ORDERED: GLIPIZIDE 2.5 MG PO SCH (08:00)
[2020-02-25] MEDS ORDERED: ACIDOPHILUS PO SCH (09:00)
[2020-02-25] MEDS ORDERED: PECTIN CITRUS PO SCH (09:00)
[2020-02-25] MEDS: Famotidine 20 MG TAB PO SCH (09:59)
[2020-02-25] MEDS: Floranex Packet PO SCH (10:00)
[2020-02-25] MEDS: Potassium Chloride 10 MEQ TAB PO SCH (10:00)
[2020-02-25] MEDS: Amiodarone 200 MG TAB PO SCH (10:00)
[2020-02-25] MEDS: Metolazone 2.5 MG TAB PO SCH (10:00)
[2020-02-25] MEDS: Polyethylene Glycol 3350 17 GM Packet PO SCH (10:00)
[2020-02-25] MEDS: Amlodipine 10 MG TAB PO SCH (10:01)
[2020-02-25] MEDS: Lisinopril 20 MG TAB PO SCH ×2 (10:01→20:52)
[2020-02-25] MEDS: Donepezil HCl 10 MG TAB PO SCH (10:01)
[2020-02-25] MEDS: Furosemide 40 MG TAB PO SCH (10:01)
[2020-02-25] MEDS: Famotidine/PF 20 mg/2ml Vial SLOW IVP SCH (10:01)
[2020-02-25] MEDS: Apixaban 2.5 MG TAB PO SCH (20:52)
[2020-02-26] MEDS: Amlodipine 10 MG TAB PO SCH (09:20)
[2020-02-26] MEDS: Amiodarone 200 MG TAB PO SCH (09:20)
[2020-02-26] MEDS: Donepezil HCl 10 MG TAB PO SCH (09:20)
[2020-02-26] MEDS: Famotidine 20 MG TAB PO SCH (09:20)
[2020-02-26] MEDS: Potassium Chloride 10 MEQ TAB PO SCH (09:20)
[2020-02-26] MEDS: Metolazone 2.5 MG TAB PO SCH (09:20)
[2020-02-26] MEDS: Apixaban 2.5 MG TAB PO SCH (09:21)
[2020-02-26] MEDS: Floranex Packet PO SCH (09:21)
[2020-02-26] MEDS: Furosemide 40 MG TAB PO SCH (09:21)
[2020-02-26] MEDS: Polyethylene Glycol 3350 17 GM Packet PO SCH (09:21)
[2020-02-26] MEDS: Famotidine/PF 20 mg/2ml Vial SLOW IVP SCH (09:21)
[2020-02-26] MEDS: Lisinopril 20 MG TAB PO SCH (09:22)
--- NOTE | 2020-02-26 12:07 | EKG ---
Test Reason : ABD PAIN Blood Pressure : / mmHG Vent. Rate : 068 BPM Atrial Rate : 068 BPM P-R Int : 182 ms QRS Dur : 108 ms QT Int : 456 ms P-R-T Axes : 026 065 058 degrees QTc Int : 484 ms Normal sinus rhythm Prolonged QT Abnormal ECG Confirmed by KENDAL FLORES DO ([id number]), editor in chief newspaper KARLA ROMAN ([id number]) on 02/26/2020 12:06:51 PM Referred By: Confirmed By:KENDAL FLORES DO
[2020-02-26 12:33] VITALS: BP 119/64; TEMP 98.5
[2020-02-26] MEDS ORDERED: Ibuprofen 600 MG TAB PO PRN (13:03)
[2020-02-26] MEDS ORDERED: Acetaminophen 500 MG TAB PO PRN (13:03)
--- NOTE | 2020-02-26 13:34 | PRG ---
DATE OF SERVICE: 02/26/2020 SUBJECTIVE: Anoop Galeas is doing well. He is seen today for . The patient is doing well. He is tolerating his diet. He has no complaints. He has only soreness. No pain. He is taking Tylenol, Advil, which suffices for his pain. OBJECTIVE: LUNGS: Clear to auscultation. CARDIAC: Regular rate and rhythm. No murmur or gallop. ABDOMEN: Soft, nontender. Surgical wound looks good. He is passing flatus and having a small amount of stool. ASSESSMENT AND PLAN: Tolerating his diet after incisional hernia repair. Follow up with Dr. Holm in the next 2 weeks. Diet and activity. Resume home medications. No lifting over 25 pounds for 6 weeks. Job ID: [id number]
== END 2020-02-26 14:16 | disposition home or self-care (01) | DRG 354 ==
LOC: ERS 20:30 → SDC 23:40 → OBSVTOIN 02-24 01:15 → SURG B 02-24 01:15
PROVIDERS: ADMIT Surgery; ATTEND Surgery
PROC: 0WUF0JZ Supplement Abdominal Wall with Synthetic Substitute, Open Approach (ICD-10-PCS; principal; 2020-02-24)
DX: K43.0 Incisional hernia with obstruction, without gangrene (principal); I48.20 Chronic atrial fibrillation, unspecified; I50.32 Chronic diastolic (congestive) heart failure; I13.0 Hypertensive heart and chronic kidney disease with heart failure and stage 1 through stage 4 chronic kidney disease, or unspecified chronic kidney disease; E11.22 Type 2 diabetes mellitus with diabetic chronic kidney disease; E78.5 Hyperlipidemia, unspecified; N18.9 Chronic kidney disease, unspecified; Z96.651 Presence of right artificial knee joint; I25.10 Atherosclerotic heart disease of native coronary artery without angina pectoris; Z85.46 Personal history of malignant neoplasm of prostate; Z87.891 Personal history of nicotine dependence; Z79.01 Long term (current) use of anticoagulants; Z79.899 Other long term (current) drug therapy; Z90.49 Acquired absence of other specified parts of digestive tract
CPT/HCPCS: 36415; 36416; 71045; 74176; 80048; 80053; 81003; 83690; 84484; 85025; 86850; 86900; 86901; 93005; 96361; 96374; 96375; C1781; J0690; J2001; J2250; J2270; J2370; J2405; J2704; J3010; S0020

== ENCOUNTER 2020-03-22 10:12 | Outpatient (CLI) | payer MEDICARE, OTHER ==
--- NOTE | 2020-03-22 10:55 | BD ---
EXAM: Bone densitometry using DEXA HISTORY: 84-year-old male. Screening for osteoporosis FINDINGS: L1--bone mineral density 1.156 g/sq cm; T score 0.8 L2--bone mineral density 1.275 g/sq cm; T score 1.6 L3--bone mineral density 1.108 g/sq cm; T score 0.0 L4--bone mineral density 1.054 g/sq cm; T score -0.3 Total L1-L4--bone mineral density 1.137 g/sq cm; T score 0.4 Left femoral neck--bone mineral density0.559; T score -2.7 Total proximal left femur--bone mineral density 0.790; T score -1.6 IMPRESSION: Osteoporosis
== END 2020-03-22 10:13 | disposition home or self-care (01) ==
LOC: BICMAMMO 10:12
PROVIDERS: ATTEND Urology
DX: M85.80 Other specified disorders of bone density and structure, unspecified site (principal); M81.0 Age-related osteoporosis without current pathological fracture
CPT/HCPCS: 77080

== ENCOUNTER 2021-03-14 11:32 | Outpatient (CLI) | payer MEDICARE, BC | END 2021-03-14 11:33 | disposition home or self-care (01) | LOC: BICRAD 11:32 | PROVIDERS: ATTEND Physician Assistant | DX: I48.0 Paroxysmal atrial fibrillation (principal); J90 Pleural effusion, not elsewhere classified; R91.8 Other nonspecific abnormal finding of lung field | CPT/HCPCS: 71046 ==

== ENCOUNTER 2022-08-29 09:31 | Outpatient (CLI) | payer MEDICARE | END 2022-08-29 09:32 | disposition home or self-care (01) | LOC: RAD 09:31 | PROVIDERS: ATTEND Physician Assistant | DX: R06.02 Shortness of breath (principal) | CPT/HCPCS: 71046 ==